=== PATIENT | female | born 1965 | race Hispanic/Latino ===

== ENCOUNTER 2018-01-29 09:13 | Emergency (ER) | payer OTHER, BC ==
[2018-01-29 09:20] VITALS: BMI 42.4
[2018-01-29 09:33] VITALS: RESP 18; TEMP 99.2
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
[2018-01-29 11:05] VITALS: BP 138/76; PULSE 88; O2SAT 98
== END 2018-01-29 11:04 | disposition home or self-care (01) ==
LOC: ED 09:13
DX: M25.512 Pain in left shoulder (principal); R51 Headache; V43.52XA Car driver injured in collision with other type car in traffic accident, initial encounter; W22.11XA Striking against or struck by driver side automobile airbag, initial encounter; Y92.410 Unspecified street and highway as the place of occurrence of the external cause

== ENCOUNTER 2018-07-19 09:57 | Observation (INO) | payer BC ==
[2018-07-19 10:12] VITALS: BMI 46.6
--- NOTE | 2018-07-19 10:21 | ED PDOC ---
Arrival/HPI - General Chief Complaint: Chest Pain Time Seen by Provider: 07/19/18 10:08 Historian: Patient - History of Present Illness Narrative History of Present Illness (Text): 07/19/18 10:18 52yr old female with hx of HTN presents today with an episode of palpitations followed by pressure sensation and heaviness in the chest. pt denies shortness of breath. pt states she feels heaviness in the neck, left side of chest and radiating into the left arm. no fever/chills. pt denies cough. pt states she has been having chronic back pain. no dizziness or weakness. pt denies nausea/vomiting. no medications taken for pain at home. pt states symptoms started in the middle of the night with an irregular beating feeling or squeezing sensation in the chest. pt states after that she has just has been having heaviness feeling. pt also states she has been having chronic lower abdominal pressure for which she is being followed by dr. tay. Past Medical History - Provider Review Nursing Documentation Reviewed: Yes - Travel History Have you recently traveled outside [place] w/in the past 3 mons?: No - Infectious Disease Hx of Infectious Diseases: None - Tetanus Immunization Tetanus Immunization: Unknown - Cardiac Hx Cardiac Disorders: Yes Hx Hypertension: Yes - Pulmonary Hx Respiratory Disorders: Yes Hx Asthma: Yes - Neurological Hx Neurological Disorder: Yes Hx Migraine: Yes - HEENT Hx HEENT Disorder: Yes (WEARS RX GLASSES) - Renal Hx Renal Disorder: No - Endocrine/Metabolic Hx Endocrine Disorders: No - Hematological/Oncological Hx Blood Disorders: No - Integumentary Hx Dermatological Disorder: No - Musculoskeletal/Rheumatological Hx Musculoskeletal Disorders: No Hx Falls: No - Gastrointestinal Hx Gastrointestinal Disorders: Yes Hx Gastroesophageal Reflux: Yes - Genitourinary/Gynecological Hx Genitourinary Disorders: Yes (Pyelonephritis) - Psychiatric Hx Psychophysiologic Disorder: Yes Hx Anxiety: Yes Hx Depression: No Hx Emotional Abuse: No Hx Physical Abuse: No Hx Substance Use: No - Surgical History Hx Appendectomy: Yes Hx Breast Biopsy: Yes (breast reduction) Hx Orthopedic Surgery: Yes - Anesthesia Hx Anesthesia: Yes Hx Anesthesia Reactions: No Hx Malignant Hyperthermia: No - Suicidal Assessment Feels Threatened In Home Enviroment: No Family/Social History - Physician Review Nursing Documentation Reviewed: Yes Family/Social History: Unknown Family HX Smoking Status: Former Smoker Hx Alcohol Use: Yes (SOCIALLY) Hx Substance Use: No Hx Substance Use Treatment: No Allergies/Home Meds Allergies/Adverse Reactions: Allergies iodine Allergy (Verified 07/19/18 10:05) RASH shrimp Allergy (Verified 07/19/18 10:05) RASH Home Medications: Home Meds Medication Instructions Recorded Confirmed Escitalopram [Lexapro] 1 tab PO DAILY 01/29/18 01/29/18 Gabapentin [Neurontin] 3 cap PO HS 01/29/18 01/29/18 Lamotrigine [Lamictal Xr] 1 tab PO Q12H 01/29/18 01/29/18 Olmesartan Medoxomil 1 tab PO DAILY 01/29/18 01/29/18 Pantoprazole Sodium [Protonix] 1 tab PO DAILY 01/29/18 01/29/18 Travoprost [Travatan Z] 1 drop BOTHEYES DAILY 01/29/18 01/29/18 diaZEpam [Valium] 1 tab PO DAILY PRN 01/29/18 01/29/18 Review of Systems - Review of Systems Constitutional: absent: Fatigue, Fevers Respiratory: absent: SOB, Cough Cardiovascular: Chest Pain, Palpitations Gastrointestinal: absent: Abdominal Pain, Constipation, Diarrhea, Nausea, Vomiting Genitourinary Female: absent: Dysuria, Frequency Musculoskeletal: absent: Arthralgias, Back Pain, Neck Pain Skin: absent: Rash, Pruritis Neurological: absent: Headache, Dizziness Psychiatric: absent: Anxiety, Depression, Suicidal Ideation Physical Exam Vital Signs Reviewed: Yes Vital Signs Temp Pulse Resp BP Pulse Ox 07/19/18 10:05 98.3 F 75 18 161/76 H 98 Temperature: Afebrile Blood Pressure: Hypertensive Pulse: Regular Respiratory Rate: Normal Appearance: Positive for: Well-Appearing, Non-Toxic, Comfortable Pain Distress: None Mental Status: Positive for: Alert and Oriented X 3 - Systems Exam Head: Present: Atraumatic Mouth: Present: Moist Mucous Membranes Neck: Present: Normal Range of Motion Respiratory/Chest: Present: Clear to Auscultation, Good Air Exchange. No: Respiratory Distress, Accessory Muscle Use Cardiovascular: Present: Regular Rate and Rhythm, Normal S1, S2. No: Murmurs Abdomen: No: Tenderness, Distention, Rebound, Guarding Back: Present: Normal Inspection. No: CVA Tenderness, Midline Tenderness, Paraspinal Tenderness Upper Extremity: Present: Normal ROM Lower Extremity: Present: Normal ROM. No: Edema Neurological: Present: GCS=15, Speech Normal Skin: Present: Warm, Dry, Normal Color. No: Rashes Psychiatric: Present: Alert, Oriented x 3 Medical Decision Making ED Course and Treatment: 07/19/18 10:48 pt with chest pain ; pt is slightly hypertensive. c/o pressure sensation to the chest. cbc; wnl cmp; wnl trop: wnl bnp; wnl ekg; normal sinus rhythm at 79 bpm normal axis no ST elevations cxr: wnl asa po pt reassessment; pt non toxic well appearing; no distress. stable vitals. discussed all results in depth with patient case discussed with Dr. khan covering for dr. ritter who covers for dr. tay. will Admit observational status to Tele for chest pain r/o acs. impression; chest pain Admit observational status - RAD Interpretation Radiology Orders: 07/19/18 10:09 CHEST PORTABLE [RAD] Stat Disposition/Present on Arrival - Present on Arrival Any Indicators Present on Arrival: No History of DVT/PE: No History of Uncontrolled Diabetes: No Urinary Catheter: No History of Decub. Ulcer: No History Surgical Site Infection Following: None - Disposition Have Diagnosis and Disposition been Completed?: Yes Diagnosis: Chest pain Disposition: HOSPITALIZED Disposition Time: 11:24 Patient Plan: Observation Patient Problems: Current Active Problems Problem Status Onset Chest pain Acute Condition: FAIR Discharge Instructions (ExitCare): Chest Pain (ED) Forms: [employer] ([place])
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
[2018-07-19 11:00] LABS: ALB/GLOB RATIO 1.3 (1.1-1.8); ALBUMIN 4.3 g/dL (3.0-4.8); ALT/SGPT 46 U/L (7-56); AST/SGOT 26 U/L (14-36); BLOOD UREA NITROGEN 15 mg/dL (7-21); CALCIUM 9.8 mg/dL (8.4-10.5); GFR NON-AFRICAN AMERICAN > 60
[2018-07-19 11:12] LABS: B-TYPE NATRIURETIC PEPTIDE 27.9 pg/mL (0-450); TROPONIN I < 0.01 ng/mL
[2018-07-19 11:23] LABS: BASO # 0.05 K/mm3 (0.0-2.0); BASO % 0.7 % (0.0-3.0); EOS # 0.2 (0.0-0.7); EOS % 3.1 % (1.5-5.0); GRAN # 4.8 (1.4-6.5); GRAN % 68.6 % (50.0-68.0); HEMOGLOBIN 12.8 g/dL (12.0-16.0); LYMPH # 1.5 (1.2-3.4); LYMPH % 21.7 % (22.0-35.0); MEAN CELL VOLUME 86.6 fl (80.0-105.0); MEAN CORPUSCULAR HEMOGLOBIN 28.1 pg (25.0-35.0); MEAN CORPUSCULAR HGB CONC 32.5 g/dl (31.0-37.0); MEAN PLATELET VOLUME 9.5 fl (7.0-11.0); MONO # 0.4 (0.1-0.6); MONO % 5.9 % (1.0-6.0); RBC 4.55 10^6/uL (3.5-6.1); RED CELL DISTRIBUTION WIDTH 13.7 % (11.5-14.5)
[2018-07-19 11:26] LABS: URINE APPEARANCE CLEAR (CLEAR); URINE BILIRUBIN NEGATIVE (NEGATIVE); URINE BLOOD TRACE-INTACT (NEGATIVE); URINE COLOR YELLOW (YELLOW); URINE GLUCOSE (UA) NEGATIVE (NEGATIVE); URINE LEUKOCYTE ESTERASE NEGATIVE Leu/uL (NEGATIVE); URINE PROTEIN NEGATIVE mg/dL (<30 mg/dL); URINE UROBILINOGEN 0.2 E.U./dL (<1 E.U./dL)
[2018-07-19 11:53] LABS: URINE BACTERIA NEG (NEG); URINE RBC 0 - 2 /hpf (0-2); URINE WBC 0 - 2 /hpf (0-6)
[2018-07-19] MEDS ORDERED: Aspirin 325 mg EC Tablets PO ONE (11:53)
[2018-07-19] MEDS: Pantoprazole 40 mg EC Tab PO SCH (14:51)
[2018-07-19 14:54] LABS: HDL CHOLESTEROL 57 mg/dL (29-60)
[2018-07-19 15:05] LABS: LDL CHOLESTEROL 145 mg/dL (0-129)
--- NOTE | 2018-07-19 16:13 | CARD ---
APPROVED REPORT Date of service: 07/19/2018 EKG Measurement Heart [id number] <Conclusion> Normal sinus rhythm Anterior infarct, age undetermined Abnormal ECG
[2018-07-19] MEDS ORDERED: Latanoprost 2.5 ml Opht Soln OU SCH (22:00)
[2018-07-19 23:14] VITALS: RESP 20; TEMP 97.7
--- NOTE | 2018-07-19 23:27 | HP ---
DATE OF EXAM: <> HISTORY OF PRESENT ILLNESS: The patient is a 52-year-old, patient of Dr. Padilla. This morning, she woke up with chest pressure as if somebody is squeezing from the left side of the chest associated with mild shortness of breath. No diaphoresis. No nausea or vomiting. It started as a pressure-like feeling. PAST MEDICAL HISTORY: She has no significant past medical history except glaucoma, hypertension and seasonal allergies. ALLERGIES: SHE IS ALLERGIC TO IODINE AND SHRIMPS. MEDICATIONS: At home, she is on Singulair 10 mg daily, Lexapro 20 mg daily, Lamictal 50 mg daily, gabapentin 600 at bedtime, Claritin 10 mg daily, Benicar 40 mg daily, vitamin D, Protonix and Travatan. SOCIAL HISTORY: She used to smoke, but she quit in 2000. Socially drinks. PHYSICAL EXAMINATION: GENERAL: She was seen in the emergency room, looks comfortable, still has chest pressure. VITAL SIGNS: She is afebrile, pulse 73, respirations 18, blood pressure 130/53. LUNGS: Bilateral fair airflow. No rhonchi or crackle. HEART: S1 and S2 audible. ABDOMEN: Soft. Nontender. No rebound. No guarding. NEUROLOGICAL: The patient is awake, alert, and able to communicate. Moves all extremities. No focal deficit. EXTREMITIES: Bilateral leg, no edema. LABORATORY EXAMINATION: WBC 7.0, hemoglobin 12.8, hematocrit 39.4, platelet 249,000. Chemistry: Sodium 138, potassium 4.5, chloride 103, CO2 28, BUN 15, creatinine 0.5, blood sugar of 112. Urinalysis is unremarkable. EKG shows normal sinus rhythm. X-ray chest, no active disease. ASSESSMENT AND PLAN: 1. Left-sided chest pain, rule out underlying ischemia. 2. Morbid obesity. 3. Hypertension. 4. History of depression. The patient states she recently had blood work done, but no labs available yet. PLAN: We will place the patient in observation, start her on small dose of beta blockers, start her on aspirin, follow up troponins, monitor her blood sugar. We will continue to evaluate the patient in a.m. Marisa Rutledge MD
[2018-07-20 07:09] LABS: ALB/GLOB RATIO 1.2 (1.1-1.8); ALBUMIN 4.2 g/dL (3.0-4.8); ALT/SGPT 42 U/L (7-56); AST/SGOT 31 U/L (14-36); BLOOD UREA NITROGEN 15 mg/dL (7-21); CALCIUM 9.7 mg/dL (8.4-10.5); GFR NON-AFRICAN AMERICAN > 60
[2018-07-20 07:16] LABS: TROPONIN I < 0.01 ng/mL
[2018-07-20 07:21] LABS: FREE T4 0.91 ng/dL (0.78-2.19)
[2018-07-20 07:43] VITALS: O2SAT 100
[2018-07-20] MEDS ORDERED: Influenza Vaccine 60 mcg/0.5 mL SYR (4YR UP) IM ONE (08:55)
[2018-07-20] MEDS: Pantoprazole 40 mg EC Tab PO SCH (09:09)
[2018-07-20 09:11] VITALS: BP 125/81; PULSE 78
--- NOTE | 2018-07-20 10:39 | CON ---
DATE: 07/20/2015 INDICATION: Chest pain. HISTORY OF PRESENT ILLNESS: This is a 52-year-old woman, who is well-known to me from a prior hospitalization in 2013, who presents with chest pain described as a left-sided discomfort, which was pressure-like and squeezing and somewhat hard to describe. It persisted over several hours. She came to the emergency room. She was subsequently admitted to telemetry. Three sets of troponins are negative. Her initial EKG was benign. The symptoms have subsided, although there is a vague left mild discomfort persisting. There was no shortness of breath, orthopnea, PND, syncope, presyncope, lightheadedness, dizziness, vertigo, palpitation, edema, or claudication. She does describe chronic dyspnea on exertion, which has not changed. She has noted a significant weight increase over the last several years. There is no fever, chills, cough, sputum production, hemoptysis, abdominal pain, nausea, vomiting, diarrhea, constipation, or melena. PAST MEDICAL HISTORY: Notable for a prior evaluation for chest pain in 2013. At that time, a nuclear stress test was unremarkable. Echocardiogram demonstrated normal left ventricular function on a limited study. There is a history of hypertension, hyperlipidemia, asthma, obesity, migraine headaches, and depression. She is a former smoker. PAST SURGICAL HISTORY: She has had an appendectomy and breast surgery. MEDICATIONS: At the time of admission include Benicar, Claritin, Lexapro, Singulair, vitamin D, Lamictal, gabapentin, Protonix, Travatan. ALLERGIES: SHE NOTES ALLERGIES TO IODINE AND SHRIMP. SOCIAL HISTORY: She lives at home. She is ambulatory. She does not currently smoke. She does not drink alcohol significantly. FAMILY HISTORY: Noncontributory. REVIEW OF SYSTEMS: Ten-point review of systems otherwise unremarkable except as noted above. PHYSICAL EXAMINATION: GENERAL: She is a well-developed, obese woman sitting on her bed on telemetry, in no acute distress. VITAL SIGNS: Notable for sinus rhythm at 60 beats per minute. She is afebrile. Blood pressure 132/76, respirations 18-20, O2 sat 95-100% on room air and CPAP mask during the night. HEENT: Reveals no neck vein distention, thyromegaly, or carotid bruits. Mucous membranes moist. Conjunctivae pink. NECK: Supple. LUNGS: Lung whitman clear throughout. HEART: Revealed normal first and second heart sounds, which were distant. No murmur, gallop, rub, or click. PMI not palpable. ABDOMEN: Obese, benign. Bowel sounds present. No mass, organomegaly, tenderness, rebound, or guarding. No CVA tenderness. No palpable abdominal aortic aneurysm. EXTREMITIES: Extremity exam revealed no cyanosis, clubbing, edema. NEUROLOGICAL: Awake, alert and oriented. PSYCHIATRIC: Normal as to mood and affect. SKIN: Warm and dry. No rash or cellulitis. LABORATORY AND IMAGING STUDIES: Chest x-ray revealed no active disease. EKG demonstrates regular sinus rhythm with poor R-wave progression. No change from her prior EKG. CBC is unremarkable. Electrolytes, BUN, creatinine, blood sugar, magnesium, LFTs, CK, all unremarkable. Three troponins are negative. BNP 27.9. Cholesterol 246, LDL 145, triglycerides 119, HDL 57. TFTs unremarkable. Urinalysis is noted. IMPRESSION: Darline Holguin is a 52-year-old obese woman with multiple coronary risk factors, admitted with atypical left-sided chest discomfort, but no evidence of myocardial infarction or arrhythmia while on telemetry. At this time, I will repeat her EKG this morning. She can be out of bed and ambulate. We will arrange for a nuclear stress test in the near future on an outpatient basis probably within the next day or two. She should be considered for statin therapy, weight reduction, dietary restrictions for total calories and saturated fats. Increased physical activity is also recommended. We will continue her current medications, which include aspirin, losartan as a substitute for Benicar, Lamictal, Lexapro, Neurontin, Protonix, Singulair. She can be out of bed and ambulate. I will follow along with you. I will make additional recommendations based on her clinical course. Hilton Cabrera MD [facility]
--- NOTE | 2018-07-20 10:54 | CP.PCM.DIS ---
<Dominick Car - Last Filed: 07/20/18 10:46> Provider - Provider Date of Admission: 07/19/18 12:05 Attending physician: Roberto Carlos Clifford MD Time Spent in preparation of Discharge (in minutes): 35 Diagnosis - Discharge Diagnosis (1) Chest pain, atypical Status: Acute Hospital Course - Lab Results Lab Results: Most Recent Lab Values WBC 7.0 10^3/uL (4.5-11.0) 07/19/18 10:35 RBC 4.55 10^6/uL (3.5-6.1) 07/19/18 10:35 Hgb 12.8 g/dL (12.0-16.0) 07/19/18 10:35 Hct 39.4 % (36.0-48.0) 07/19/18 10:35 MCV 86.6 fl (80.0-105.0) 07/19/18 10:35 MCH 28.1 pg (25.0-35.0) 07/19/18 10:35 MCHC 32.5 g/dl (31.0-37.0) 07/19/18 10:35 RDW 13.7 % (11.5-14.5) 07/19/18 10:35 Plt Count 249 10^3/uL (120.0-450.0) 07/19/18 10:35 MPV 9.5 fl (7.0-11.0) 07/19/18 10:35 Gran % 68.6 % (50.0-68.0) H 07/19/18 10:35 Lymph % (Auto) 21.7 % (22.0-35.0) L 07/19/18 10:35 [place] % (Auto) 5.9 % (1.0-6.0) 07/19/18 10:35 Eos % (Auto) 3.1 % (1.5-5.0) 07/19/18 10:35 Baso % (Auto) 0.7 % (0.0-3.0) 07/19/18 10:35 Gran # 4.80 (1.4-6.5) 07/19/18 10:35 Lymph # (Auto) 1.5 (1.2-3.4) 07/19/18 10:35 [place] # (Auto) 0.4 (0.1-0.6) 07/19/18 10:35 Eos # (Auto) 0.2 (0.0-0.7) 07/19/18 10:35 Baso # (Auto) 0.05 K/mm3 (0.0-2.0) 07/19/18 10:35 Sodium 140 mmol/L (132-148) 07/20/18 06:30 Potassium 4.5 mmol/L (3.6-5.0) 07/20/18 06:30 Chloride 101 mmol/L (98-107) 07/20/18 06:30 Carbon Dioxide 32 mmol/L (21-33) 07/20/18 06:30 Anion Gap 12 (10-20) 07/20/18 06:30 BUN 15 mg/dL (7-21) 07/20/18 06:30 Creatinine 0.6 mg/dl (0.7-1.2) L 07/20/18 06:30 Est GFR ( Amer) > 60 07/20/18 06:30 Est GFR (Non-Af Amer) > 60 07/20/18 06:30 Random Glucose 116 mg/dL (70-110) H 07/20/18 06:30 Calcium 9.7 mg/dL (8.4-10.5) 07/20/18 06:30 Magnesium 2.2 mg/dL (1.7-2.2) 07/19/18 10:35 Total Bilirubin 0.3 mg/dL (0.2-1.3) 07/20/18 06:30 AST 31 U/L (14-36) 07/20/18 06:30 ALT 42 U/L (7-56) 07/20/18 06:30 Alkaline Phosphatase 82 U/L (38-126) 07/20/18 06:30 Lactate Dehydrogenase 558 U/L (333-699) 07/19/18 10:35 Total Creatine Kinase 97 U/L (35-230) 07/19/18 10:35 Troponin I < 0.01 ng/mL 07/20/18 06:30 NT-Pro-B Natriuret Pep 27.9 pg/mL (0-450) 07/19/18 10:35 Total Protein 7.5 g/dL (5.8-8.3) 07/20/18 06:30 Albumin 4.2 g/dL (3.0-4.8) 07/20/18 06:30 Globulin 3.4 gm/dL 07/20/18 06:30 Albumin/Globulin Ratio 1.2 (1.1-1.8) 07/20/18 06:30 Triglycerides 119 mg/dL (35-160) 07/19/18 10:35 Cholesterol 246 mg/dL (130-200) H 07/19/18 10:35 LDL Cholesterol Direct 145 mg/dL (0-129) H 07/19/18 10:35 HDL Cholesterol 57 mg/dL (29-60) 07/19/18 10:35 Free T4 0.91 ng/dL (0.78-2.19) 07/20/18 06:30 TSH 3rd Generation 0.51 mIU/mL (0.46-4.68) 07/20/18 06:30 Urine Color Yellow (YELLOW) 07/19/18 10:35 Urine Appearance Clear (CLEAR) 07/19/18 10:35 Urine pH 7.0 (4.7-8.0) 07/19/18 10:35 Ur Specific [place] 1.015 (1.005-1.035) 07/19/18 10:35 Urine Protein Negative mg/dL (<30 mg/dL) 07/19/18 10:35 Urine Glucose (UA) Negative mg/dL (NEGATIVE) 07/19/18 10:35 Urine Ketones Negative mg/dL (NEGATIVE) 07/19/18 10:35 Urine Blood Trace-intact (NEGATIVE) H 07/19/18 10:35 Urine Nitrate Negative (NEGATIVE) 07/19/18 10:35 Urine Bilirubin Negative (NEGATIVE) 07/19/18 10:35 Urine Urobilinogen 0.2 E.U./dL (<1 E.U./dL) 07/19/18 10:35 Ur Leukocyte Esterase Negative Franky/uL (NEGATIVE) 07/19/18 10:35 Urine RBC 0 - 2 /hpf (0-2) 07/19/18 10:35 Urine WBC 0 - 2 /hpf (0-6) 07/19/18 10:35 Ur Epithelial Cells 3 - 4 /hpf (0-5) 07/19/18 10:35 Urine Bacteria Neg (NEG) 07/19/18 10:35 - Hospital Course Hospital Course: 52 year old female with a PMH of HTN, HLD, GERD, morbid obesity and glaucoma who was admitted for atypical chest pain that she described as squeezing in her left chest associated with shortness of breath. EKG Was NSR @ 79bpm w/ no ST changes. CXR was unremarkable. Aspirin 81mg was started. Cardiology was consulted, and recommend outpatient stress test. Troponin was negative x3. Patient's chest pain resolved and she is feeling better this morning. She has a CT of abdomen/pelvis planned for this friday and will follow-up with Dr. Gomez in the office after that. Lipid panel indicated hyperlipidemia but patient does not meet criteria for starting statins at this time; TSH was wnl and A1c is pending at time of discharge. She was educated on lifestyle modifications and exercise. She will be continued on her home medications in addition to Aspirin 81 mg daily. She will follow-up with Dr. Cabrera for stress test within a couple days. She will follow- up with Dr. Gomez next week. Discharge Exam - Head Exam Head Exam: ATRAUMATIC, NORMAL INSPECTION, NORMOCEPHALIC - Eye Exam Eye Exam: EOMI, Normal appearance, PERRL Pupil Exam: NORMAL ACCOMODATION - ENT Exam ENT Exam: Mucous Membranes Moist, Normal Oropharynx - Neck Exam Neck exam: Full Rom, Normal Inspection - Respiratory Exam Respiratory Exam: NORMAL BREATHING PATTERN. absent: Rales, Rhonchi, Wheezes, Respiratory Distress - Cardiovascular Exam Cardiovascular Exam: RRR, +S1, +S2. absent: JVD, Systolic Murmur - GI/Abdominal Exam GI & Abdominal Exam: Soft. absent: Distended, Tenderness Additional comments: obese body habitus - Extremities Exam Extremities exam: full ROM, normal inspection, pedal pulses present Additional comments: no pedal edema - Back Exam Back exam: NORMAL INSPECTION - Neurological Exam Neurological exam: Alert, CN II-XII Intact, Normal Gait, Oriented x3 - Psychiatric Exam Psychiatric exam: Normal Mood - Skin Skin Exam: Normal Color, Warm Discharge Plan - Discharge Medications Prescriptions: RX: Aspirin [Ecotrin] 81 mg PO DAILY #30 tabec - Follow Up Plan Condition: GOOD Disposition: HOME/ ROUTINE Instructions: Heart Healthy Diet, Angina (DC) Additional Instructions: 1. Follow up with primary care physican in one-two weeks 2. Follow up with chiropractic practice manager for outpatient stress test 3. If symptoms return or worsen, please report to nearest emergency room or call 911 immediately 4. Resume home medications as ordered Referrals: Ju Gomez MD [Family Provider] - Hilton Cabrera MD [Staff Provider] - <Roberto Carlos Clifford - Last Filed: 07/20/18 19:43> Provider - Provider Date of Admission: 07/19/18 12:05 Attending physician: Roberto Carlos Clifford MD Hospital Course - Lab Results Lab Results: Most Recent Lab Values WBC 7.0 10^3/uL (4.5-11.0) 07/19/18 10:35 RBC 4.55 10^6/uL (3.5-6.1) 07/19/18 10:35 Hgb 12.8 g/dL (12.0-16.0) 07/19/18 10:35 Hct 39.4 % (36.0-48.0) 07/19/18 10:35 MCV 86.6 fl (80.0-105.0) 07/19/18 10:35 MCH 28.1 pg (25.0-35.0) 07/19/18 10:35 MCHC 32.5 g/dl (31.0-37.0) 07/19/18 10:35 RDW 13.7 % (11.5-14.5) 07/19/18 10:35 Plt Count 249 10^3/uL (120.0-450.0) 07/19/18 10:35 MPV 9.5 fl (7.0-11.0) 07/19/18 10:35 Gran % 68.6 % (50.0-68.0) H 07/19/18 10:35 Lymph % (Auto) 21.7 % (22.0-35.0) L 07/19/18 10:35 [place] % (Auto) 5.9 % (1.0-6.0) 07/19/18 10:35 Eos % (Auto) 3.1 % (1.5-5.0) 07/19/18 10:35 Baso % (Auto) 0.7 % (0.0-3.0) 07/19/18 10:35 Gran # 4.80 (1.4-6.5) 07/19/18 10:35 Lymph # (Auto) 1.5 (1.2-3.4) 07/19/18 10:35 [place] # (Auto) 0.4 (0.1-0.6) 07/19/18 10:35 Eos # (Auto) 0.2 (0.0-0.7) 07/19/18 10:35 Baso # (Auto) 0.05 K/mm3 (0.0-2.0) 07/19/18 10:35 Sodium 140 mmol/L (132-148) 07/20/18 06:30 Potassium 4.5 mmol/L (3.6-5.0) 07/20/18 06:30 Chloride 101 mmol/L (98-107) 07/20/18 06:30 Carbon Dioxide 32 mmol/L (21-33) 07/20/18 06:30 Anion Gap 12 (10-20) 07/20/18 06:30 BUN 15 mg/dL (7-21) 07/20/18 06:30 Creatinine 0.6 mg/dl (0.7-1.2) L 07/20/18 06:30 Est GFR ( Amer) > 60 07/20/18 06:30 Est GFR (Non-Af Amer) > 60 07/20/18 06:30 Random Glucose 116 mg/dL (70-110) H 07/20/18 06:30 Hemoglobin A1c 5.8 % (4.2-6.5) 07/20/18 06:30 Calcium 9.7 mg/dL (8.4-10.5) 07/20/18 06:30 Magnesium 2.2 mg/dL (1.7-2.2) 07/19/18 10:35 Total Bilirubin 0.3 mg/dL (0.2-1.3) 07/20/18 06:30 AST 31 U/L (14-36) 07/20/18 06:30 ALT 42 U/L (7-56) 07/20/18 06:30 Alkaline Phosphatase 82 U/L (38-126) 07/20/18 06:30 Lactate Dehydrogenase 558 U/L (333-699) 07/19/18 10:35 Total Creatine Kinase 97 U/L (35-230) 07/19/18 10:35 Troponin I < 0.01 ng/mL 07/20/18 06:30 NT-Pro-B Natriuret Pep 27.9 pg/mL (0-450) 07/19/18 10:35 Total Protein 7.5 g/dL (5.8-8.3) 07/20/18 06:30 Albumin 4.2 g/dL (3.0-4.8) 07/20/18 06:30 Globulin 3.4 gm/dL 07/20/18 06:30 Albumin/Globulin Ratio 1.2 (1.1-1.8) 07/20/18 06:30 Triglycerides 119 mg/dL (35-160) 07/19/18 10:35 Cholesterol 246 mg/dL (130-200) H 07/19/18 10:35 LDL Cholesterol Direct 145 mg/dL (0-129) H 07/19/18 10:35 HDL Cholesterol 57 mg/dL (29-60) 07/19/18 10:35 Free T4 0.91 ng/dL (0.78-2.19) 07/20/18 06:30 TSH 3rd Generation 0.51 mIU/mL (0.46-4.68) 07/20/18 06:30 Urine Color Yellow (YELLOW) 07/19/18 10:35 Urine Appearance Clear (CLEAR) 07/19/18 10:35 Urine pH 7.0 (4.7-8.0) 07/19/18 10:35 Ur Specific [place] 1.015 (1.005-1.035) 07/19/18 10:35 Urine Protein Negative mg/dL (<30 mg/dL) 07/19/18 10:35 Urine Glucose (UA) Negative mg/dL (NEGATIVE) 07/19/18 10:35 Urine Ketones Negative mg/dL (NEGATIVE) 07/19/18 10:35 Urine Blood Trace-intact (NEGATIVE) H 07/19/18 10:35 Urine Nitrate Negative (NEGATIVE) 07/19/18 10:35 Urine Bilirubin Negative (NEGATIVE) 07/19/18 10:35 Urine Urobilinogen 0.2 E.U./dL (<1 E.U./dL) 07/19/18 10:35 Ur Leukocyte Esterase Negative Franky/uL (NEGATIVE) 07/19/18 10:35 Urine RBC 0 - 2 /hpf (0-2) 07/19/18 10:35 Urine WBC 0 - 2 /hpf (0-6) 07/19/18 10:35 Ur Epithelial Cells 3 - 4 /hpf (0-5) 07/19/18 10:35 Urine Bacteria Neg (NEG) 07/19/18 10:35 - Hospital Course Hospital Course: Pt seen and examined. I have reviewed the note of the quality engineer medical device and agree with it. I have discussed the assessment and plan with the resident. I have reviewed the patient's labs and medications. She has no CP. She is feeling well. Trop and EKG do not show ischemia. I did speak to Dr Cabrera and she is cleared to be discharged home. She will get stress test as out-pt.
== END 2018-07-20 11:30 | disposition home or self-care (01) ==
LOC: ED 09:57 → ERH 12:05 → 2RSO 13:40
PROVIDERS: ADMIT Internal Medicine Nephrology; ATTEND Internal Medicine Nephrology
DX: R07.89 Other chest pain (principal); I10 Essential (primary) hypertension; H40.9 Unspecified glaucoma; J45.909 Unspecified asthma, uncomplicated; F32.9 Major depressive disorder, single episode, unspecified; K21.9 Gastro-esophageal reflux disease without esophagitis; E78.5 Hyperlipidemia, unspecified; G43.909 Migraine, unspecified, not intractable, without status migrainosus; E66.01 Morbid (severe) obesity due to excess calories; Z68.42 Body mass index [BMI] 45.0-49.9, adult; Z87.891 Personal history of nicotine dependence
CPT/HCPCS: 36415; 71045; 80053; 80061; 81001; 82550; 83036; 83615; 83735; 83880; 84439; 84443; 84484; 85025; 90674; 93005; 99285; G0008; G0378